=== PATIENT | male | born 1955 | race Caucasian/White ===

== ENCOUNTER 2018-09-29 04:14 | Emergency (ER) | payer SELFPAY ==
[~2018-09-29] VITALS: Ht 165.1 cm; Wt 66.0 kg
--- NOTE | 2018-09-29 04:48 | NUR ---
assessment made. chart up for MD to see.
--- NOTE | 2018-09-29 04:50 | NUR ---
PA at bedside.
--- NOTE | 2018-09-29 05:00 | NUR ---
X ray and EKG done.
--- NOTE | 2018-09-29 05:11 | NUR ---
blood drawn by slab installer.
[2018-09-29 05:14] LABS: BASOPHILS # (AUTO) 0.03 x10^3/uL (0-0.1); BASOPHILS % (AUTO) 0 % (0-1); EOSINOPHILS # (AUTO) 0.02 x10^3/uL (0-0.4); EOSINOPHILS % (AUTO) 0 % (1-7); LYMPHOCYTES # (AUTO) 2.02 x10^3/uL (1-3.4); LYMPHOCYTES % (AUTO) 22 % (22-44); MD NO; MEAN CORPUSCULAR HEMOGLOBIN 30.9 pg (27.5-34.5); MEAN CORPUSCULAR HGB CONC 33.3 g/dL (33.2-36.2); MEAN CORPUSCULAR VOLUME 92.7 fL (81-97); MEAN PLATELET VOLUME 8.4 fL (7.4-10.4); MONOCYTES # (AUTO) 0.42 x10^3/uL (0.2-0.8); MONOCYTES % (AUTO) 5 % (2-9); NEUTROPHILS # (AUTO) 6.89 x10^3/uL (1.8-6.8); NEUTROPHILS % (AUTO) 73 % (42-75); PLATELET COUNT 241 x10^3/uL (130-400); RED BLOOD COUNT 5.03 x10^6/uL (4.38-5.82); RED CELL DISTRIBUTION WIDTH 13.2 % (9.4-14.8)
[2018-09-29 05:24] LABS: ALBUMIN 4.2 g/dL (3.4-5.0); ANION GAP 9 mmol/L (5-15); CHLORIDE 115 mmol/L (98-107)
[2018-09-29 05:30] LABS: ALANINE AMINOTRANSFERASE 36 U/L (12-78); ALKALINE PHOSPHATASE 84 U/L (45-117); BILIRUBIN,TOTAL 0.5 mg/dL (0.2-1.0); CREATININE 0.98 mg/dL (0.7-1.3); TOTAL PROTEIN 7.6 g/dL (6.4-8.2); TROPONIN I < 0.015 ng/mL (0.000-0.045)
--- NOTE | 2018-09-29 05:35 | NUR ---
ERP at bedside for patient evaluation.
--- NOTE | 2018-09-29 05:52 | NUR ---
patient to CT scan.
[2018-09-29 06:35] VITALS: BP 102/42
--- NOTE | 2018-09-29 07:25 | NUR ---
pt ambulates in hallway with steady gait, denies dizziness. pt verbalizes understanding of dc instructions
== END 2018-09-29 07:28 | disposition home or self-care (01) ==
LOC: ED 06:30
DX: R55 Syncope and collapse (principal); F10.120 Alcohol abuse with intoxication, uncomplicated
CPT/HCPCS: 36415; 70450; 71045; 80053; 84484; 85025; 93005; 99284